=== PATIENT | female | born 1955 | race Caucasian/White ===

== ENCOUNTER 2020-12-21 15:28 | Emergency (ER) | payer OTHER ==
[~2020-12-21] VITALS: Ht 142.2 cm; Wt 60.0 kg
[2020-12-21 16:24] LABS: BASOPHILS % (AUTO) 1 % (0-1); EOSINOPHILS % (AUTO) 2 % (1-7); LYMPHOCYTES % (AUTO) 14 % (22-44); MEAN CORPUSCULAR HEMOGLOBIN 33.5 pg (27.0-34.8); MEAN CORPUSCULAR HGB CONC 34.8 g/dL (32.4-35.8); MONOCYTES % (AUTO) 12 % (2-9); NEUTROPHILS % (AUTO) 71 % (42-75); PLATELET COUNT 300 x10^3/uL (130-400); RED BLOOD COUNT 3.12 x10^6/uL (3.82-5.3); RED CELL DISTRIBUTION WIDTH 15.7 % (9.6-15.2)
[2020-12-21] MEDS ORDERED: PLEASE ENTER HEIGHT AND WEIGHT MC SCH (16:30)
[2020-12-21] MEDS ORDERED: ONDANSETRON 2MG/ML, 2ML IVPush ONE (16:30)
[2020-12-21] MEDS ORDERED: PLEASE ENTER ALLERGIES MC SCH (16:30)
[2020-12-21] MEDS ORDERED: MORPHINE SULFATE 4 MG/ML, 1ML IVPush ONE (16:30)
[2020-12-21 16:34] LABS: ALBUMIN 2.8 g/dL (3.4-5.0); ANION GAP 7 mmol/L (5-15); CALCIUM 8.9 mg/dL (8.5-10.1); CHLORIDE 102 mmol/L (98-107)
[2020-12-21 16:38] LABS: ALANINE AMINOTRANSFERASE 19 U/L (12-78); ALKALINE PHOSPHATASE 85 U/L (45-117); BILIRUBIN,TOTAL 0.3 mg/dL (0.2-1.0); CREATININE 1.03 mg/dL (0.55-1.02); TOTAL PROTEIN 6.3 g/dL (6.4-8.2)
[2020-12-21] MEDS ORDERED: PANTOPRAZOLE 80 MG in SODIUM CHLORIDE 0.9% 50 ML IV ONE (17:00)
[2020-12-21] MEDS ORDERED: PANTOPRAZOLE 80 MG in SODIUM CHLORIDE 0.9% 100 ML IV SCH (17:00)
--- NOTE | 2020-12-21 17:09 | NUR ---
PAT ALLERGIC TO IV CONT. BREAKS OUT IN HIVES, INFOR GIVEN TO LEONIDAS HERMAN
--- NOTE | 2020-12-21 17:38 | NUR ---
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
[2020-12-21 17:42] VITALS: BP 106/58
--- NOTE | 2020-12-21 18:17 | NUR ---
pt to ct
[2020-12-21] MEDS ORDERED: DIPHENHYDRAMINE 50 MG/ML, 1ML IVPush ONE (18:30)
--- NOTE | 2020-12-21 19:05 | NUR ---
FIRST CONTACT WITH PATIENT. PATIENT YELLING AT THIS RN TO PUT THE SIDE RAIL DOWN BECAUSE SHE IS LEAVING. WHEN ASKED WHY PATIENT IS LEAVING PATIENT STATES "NOTHING IS BEING DONE SO THERE IS NO POINT IN STAYING." ATTEMPTED TO HAVE CONVERSATION WITH PATIENT ABOUT THE IMPORTANCE OF STAYING BUT PATIENT CONTINUES TO YELL AT THIS RN. WILL BRING AMA PAPERWORK TO BEDSIDE. IV REMOVED AT THIS TIME.
--- NOTE | 2020-12-21 19:10 | NUR ---
MOOSE PAPERWORK SIGNED AT THIS TIME. ASSISTED PATIENT TO DISCHARGE DESK FOR DISCHARGE AND SO SHE CAN CALL A CAB.
== END 2020-12-21 19:17 | disposition left against medical advice (07) ==
LOC: ED 19:15
DX: K92.1 Melena (principal); R10.84 Generalized abdominal pain; I10 Essential (primary) hypertension
CPT/HCPCS: 36415; 74177; 80053; 83690; 85025; 93005; 96374; 99285; J1200